=== PATIENT | male | born 1990 | race Two or more races ===

== ENCOUNTER 2024-12-19 19:28 | Emergency (ER) | payer OTHER ==
[~2024-12-19] VITALS: Ht 175.3 cm; Wt 80.0 kg
[2024-12-19 19:40] VITALS: BP 150/90; PULSE 90; RESP 20; TEMP 97.9; O2SAT 99
[2024-12-19] MEDS ORDERED: KETOROLAC TROMETH 60MG/2ML VIAL IM ONE (19:45)
[2024-12-19] MEDS ORDERED: HYDROcodone-ACET 5/325MG TAB PO ONE (19:45)
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
== END 2024-12-19 20:41 | disposition left against medical advice (07) ==
LOC: EDBD 19:28 → ER 19:28
DX: S70.01XA Contusion of right hip, initial encounter (principal); S70.11XA Contusion of right thigh, initial encounter; V98.8XXA Other specified transport accidents, initial encounter; Y93.I9 Activity, other involving external motion; Y92.488 Other paved roadways as the place of occurrence of the external cause; Y99.8 Other external cause status